=== PATIENT | female | born 1960 | race Caucasian/White ===

== ENCOUNTER 2024-12-24 09:38 | Observation (INO) | payer MEDICAID, OTHER ==
[2024-12-24] MEDS ORDERED: Naloxone 0.4 MG/ML SDV IVPUSH PRN (09:50)
[2024-12-24] MEDS: Prochlorperazine 10 MG/2 ML SDV IVPUSH ONE (09:59)
[2024-12-24 10:06] LABS: PLATELET COUNT,PLT 301 K/uL (130-375); RED BLOOD CELL COUNT 5.41 M/uL (3.77-5.24); WHITE BLOOD CELL COUNT,WBC 8.6 K/uL (3.2-11.0)
[2024-12-24] MEDS: Iopamidol 612 MG/ML 100 ML Bottle IV SCH (10:28)
[2024-12-24] MEDS: Sodium Chloride 0.9% 10 ML Syringe FLUSH PRN (10:28)
[2024-12-24 10:35] LABS: ATYPICAL LYMPHOCYTES FEW; BAND ABSOLUTE MAN 0.26 K/uL; BAND PERCENT MAN 3 % (5-11); EOSINOPHILS ABSOLUTE MAN 0.09 K/uL (0.00-0.40); EOSINOPHILS PERCENT MAN 1 % (2-4); LYMPHOCYTES ABSOLUTE MAN 2.24 K/uL (0.8-3.3); LYMPHOCYTES PERCENT MAN 26 % (24-44); MONOCYTES ABSOLUTE MAN 0.09 K/uL (0.20-0.90); MONOCYTES PERCENT MAN 1 % (2-6); NEUTROPHILS ABSOLUTE MAN 5.93 K/uL (1.0-7.6); SEG NEUTROPHILS PERCENT MAN 69 % (36-66)
[2024-12-24 10:39] LABS: A/G RATIO 1.2 (1.2-2.2); ALANINE AMINOTRANSFERASE,ALT 43 U/L (12-78); ASPARTATE AMNIOTRANSFERASE,AST 28 U/L (15-37); BILIRUBIN TOTAL 0.4 mg/dL (0.2-1.0); BLOOD UREA NITROGEN,BUN 27 mg/dL (7-18); CARBON DIOXIDE,CO2 28 mmol/L (21-32); CHLORIDE,CL 102 mmol/L (100-108); CREATININE 1.7 mg/dL (0.6-1.0); EST CRCL DRUG DOSING (CG) 27.65 mL/min; ESTIMATED GFR 33 mL/min (>60); GLUCOSE RANDOM 227 mg/dL (74-106); POTASSIUM,K 3.7 mmol/L (3.6-5.2); PROTEIN TOTAL,TP 7.6 g/dL (6.4-8.2); SODIUM,NA 141 mmol/L (140-148)
[2024-12-24 18:38] LABS: APPEARANCE,URINE CLOUDY (CLEAR); GLUCOSE,URINE NEGATIVE (NEGATIVE); OCCULT BLOOD,URINE TRACE-INTACT (NEGATIVE)
[2024-12-24 18:46] LABS: SQUAMOUS EPITHELIAL CELLS,UR NOT SEEN /HPF; UROTHELIAL CELLS,URINE NOT SEEN /HPF
[2024-12-24] MEDS ORDERED: Ondansetron 4 MG Tab.DIS PO PRN (18:47)
[2024-12-24] MEDS ORDERED: MELATONIN 10 MG PO SCH (21:00)
[2024-12-25] MEDS: Sodium Phosphate,Monobasic/Sodium Phosphate,Dibasic Enema 133 ML Bottle RECTAL ONE (00:36)
[2024-12-25 01:25] LABS: PLATELET COUNT,PLT 263.0 K/uL (130-375); RED BLOOD CELL COUNT 5.2 M/uL (3.77-5.24); WHITE BLOOD CELL COUNT,WBC 2.3 K/uL (3.2-11.0)
[2024-12-25 01:41] LABS: BLOOD UREA NITROGEN,BUN 32.0 mg/dL (7-18); CARBON DIOXIDE,CO2 20.0 mmol/L (21-32); CHLORIDE,CL 107.0 mmol/L (100-108); CREATININE 2.1 mg/dL (0.6-1.0); EST CRCL DRUG DOSING (CG) 22.38 mL/min; ESTIMATED GFR 26.0 mL/min (>60); GLUCOSE RANDOM 130.0 mg/dL (74-106); POTASSIUM,K 3.9 mmol/L (3.6-5.2); SODIUM,NA 142.0 mmol/L (140-148)
[2024-12-25] MEDS ORDERED: Piperacillin/Tazobactam/Dext 4.5 GM in Premix Bag 1 BAG IV ONE (02:45)
[2024-12-25] MEDS ORDERED: Iopamidol 612 MG/ML 100 ML Bottle IV SCH (03:00)
[2024-12-25] MEDS: Iopamidol 612 MG/ML 100 ML Bottle IV ONE (03:55)
[2024-12-25] MEDS: Sodium Chloride 0.9% 10 ML Syringe FLUSH PRN (03:56)
[2024-12-25] MEDS: Piperacillin/Tazobactam/Dext 4.5 GM in Premix Bag 1 BAG IV ONE (03:59)
[2024-12-25] MEDS: Sodium Chloride 0.9% 10 ML Syringe FLUSH ONE (06:00)
[2024-12-25 06:10] LABS: A/G RATIO 0.9 (1.2-2.2); ALANINE AMINOTRANSFERASE,ALT 30 U/L (12-78); ASPARTATE AMNIOTRANSFERASE,AST 24 U/L (15-37); BILIRUBIN TOTAL 0.3 mg/dL (0.2-1.0); BLOOD UREA NITROGEN,BUN 33 mg/dL (7-18); CARBON DIOXIDE,CO2 22 mmol/L (21-32); CHLORIDE,CL 106 mmol/L (100-108); CREATININE 2.1 mg/dL (0.6-1.0); EST CRCL DRUG DOSING (CG) 22.38 mL/min; ESTIMATED GFR 26 mL/min (>60); GLUCOSE RANDOM 131 mg/dL (74-106); POTASSIUM,K 4.9 mmol/L (3.6-5.2); PROTEIN TOTAL,TP 5.1 g/dL (6.4-8.2); SODIUM,NA 139 mmol/L (140-148)
[2024-12-25] MEDS ORDERED: Piperacillin/Tazobactam/Dext 4.5 GM in Premix Bag 1 BAG IV SCH (08:00)
[2024-12-25] MEDS ORDERED: Venlafaxine 75 MG Cap.ER PO SCH (09:00)
[2024-12-25] MEDS ORDERED: Heparin Sodium 5,000 Units/ML Vial SUBCUT SCH (16:14)
== END 2024-12-25 07:15 ==
LOC: JP.ED 09:38 → JP.MS 15:40
PROVIDERS: ADMIT Student in an Organized Health Care Education/Training Program; ATTEND Student in an Organized Health Care Education/Training Program
DX: C80.0 Disseminated malignant neoplasm, unspecified (principal); R18.8 Other ascites; R10.9 Unspecified abdominal pain; Z88.1 Allergy status to other antibiotic agents; Z91.048 Other nonmedicinal substance allergy status
CPT/HCPCS: 36415; 51701; 51702; 74177; 76705; 80048; 80053; 81001; 83605; 83690; 83735; 85025; 85027; 86140; 87086; 87088; 87186; 99223; 99239; A9270; C1758; J0696; J0780; J1171; J2543; J7030; Q9967